=== PATIENT | female | born 1965 | race African-American/Black ===

== ENCOUNTER 2025-02-05 18:41 | Inpatient (IN) | payer MEDICAID ==
[~2025-02-05] VITALS: Ht 312.4 cm; Wt 111.1 kg
[~2025-02-05 18:41] MED LIST: AMLO5TAB88 PO; DOXA-15 PO; FERR-63 PO; FURO40TA5 MT; HYDR100T31 PO; INSU100I28 SQ; IPRA3AMP9 HHN; PEPJ2 PO; PULM50 HHN; SODI650T PO
[2025-02-05] MEDS: ALBUTEROL (0.083%) 2.5MG/3ML NEB HHN STA (18:44)
[2025-02-05] MEDS: IPRATROPIUM BROMIDE (0.02%) 0.5MG/2.5ML NEB HHN STA (18:44)
[2025-02-05] MEDS: METHYLPREDNISOLONE SOD SUCC 125MG/2ML (ACT-O-VIAL) IV STA (19:06)
[2025-02-05 19:15] VITALS: RESP 24
[2025-02-05 19:30] LABS: HEMATOCRIT. 27.4 % (36.0-48.0); HEMOGLOBIN. 7.7 g/dL (12.0-16.0); MEAN CORPUSCULAR HEMOGLOBIN 18.7 pg (28.0-32.0); MEAN CORPUSCULAR HGB CONC 27.9 g/dL (31.0-37.0); MEAN CORPUSCULAR VOLUME 66.9 fL (81.0-99.0); MEAN PLATELET VOLUME 9.5 fl (7.4-10.4); PLATELET 290 x1000/uL (130-400); RED CELL DISTRIBUTION WIDTH 22.9 % (11.6-14.6); WHITE BLOOD COUNT 8.6 x1000/uL (4.5-11.0)
[2025-02-05 19:38] LABS: CHLORIDE 108 mEq/L (98-107); POTASSIUM 5.2 mEq/L (3.5-5.1); SODIUM 145 mEq/L (136-145)
[2025-02-05 19:39] LABS: CALCIUM 8.2 mg/dL (8.7-10.4); CARBON DIOXIDE 25 mEq/L (21-32)
[2025-02-05 19:44] LABS: CREATININE 2.7 mg/dL (0.6-1.0); GLUCOSE 265 mg/dL (70-105); UREA NITROGEN BLOOD 85 mg/dL (9-23)
[2025-02-05 19:48] LABS: DIFFERENTIAL COMMENT 1
[2025-02-05 19:52] LABS: TROPONIN I HIGH SENSITIVITY 48 ng/L (3.0-34)
[2025-02-05] MEDS: ASPIRIN 325MG EC TABLET PO ONE (20:00)
[2025-02-05] MEDS ORDERED: ONDANSETRON HCL 4MG/2ML INJ IV PRN (20:30)
[2025-02-05] MEDS ORDERED: MAGNESIUM/ALUMINUM HYDROXIDE/SIMETHICONE 30ML UDC PO PRN (20:30)
[2025-02-05] MEDS ORDERED: IPRATROPIUM/ALBUTEROL 0.5-3(2.5)MG/3ML NEB HHN PRN (20:30)
[2025-02-05] MEDS ORDERED: DOCUSATE SODIUM 100MG CAPSULE PO PRN (20:30)
[2025-02-05] MEDS ORDERED: GUAIFENESIN 200MG/10ML SUGAR FREE UDC PO PRN (20:30)
[2025-02-05] MEDS ORDERED: NON FORMULARY MED XX SCH (20:45)
[2025-02-05] MEDS ORDERED: DEXTROSE 50% WATER 50ML SYRINGE IV PRN (20:45)
[2025-02-05] MEDS: BLOOD SUGAR DIAGNOSTIC STRIP TEST SCH (21:00)
[2025-02-05] MEDS ORDERED: ZOLPIDEM TARTRATE 5MG TABLET PO PRN (21:00)
[2025-02-05] MEDS ORDERED: CEFEPIME 1GM IN DEXT 5% 50ML IV SCH (21:15)
[2025-02-05 21:28] LABS: TROPONIN I HIGH SENSITIVITY 39 ng/L (3.0-34)
[2025-02-05 21:44] LABS: D-DIMER 0.43 mg/L FEU (<0.50); INR 1.1; PARTIAL THROMBOPLASTIN TIME 23.4 sec (23.4-31.0)
[2025-02-05] MEDS: FUROSEMIDE 40MG/4ML VIAL IVP ONE (21:59)
[2025-02-05 22:00] VITALS: RESP 22
[2025-02-05] MEDS: SODIUM ZIRCONIUM CYCLOSILICATE 10GM/PACKET PO NR (22:00)
[2025-02-05] MEDS: PANTOPRAZOLE SODIUM 40 MG/VIAL IV SCH (22:02)
[2025-02-05] MEDS: INSULIN LISPRO 100 UNITS/ML SUBCUT SCH (22:04)
[2025-02-05 23:11] LABS: CREATINE KINASE MB FRACTION 10.7 ng/mL (0.5-3.6)
[2025-02-05 23:36] VITALS: BP 176/88; PULSE 72; RESP 16; TEMP 35.9
[2025-02-06] VITALS (18 sets, daily range): BP systolic 104–191; BP diastolic 63–120; PULSE 74–85; RESP 0–30; TEMP 35.8–36.7; O2SAT 92–100
[2025-02-06] MEDS: FUROSEMIDE 40MG/4ML VIAL IVP NR (00:08)
[2025-02-06] MEDS: DOXYCYCLINE 100MG/100ML 100 ML IV SCH ×2 (00:08→06:24)
[2025-02-06] MEDS: IRON SUCROSE COMPLEX 100 MG/5 ML ML IV NR (00:09)
[2025-02-06] MEDS: INSULIN GLARGINE 100 UNITS/ML SUBCUT SCH (00:13)
[2025-02-06] MEDS: ENOXAPARIN 40MG/0.4ML SYR SUBCUT SCH (00:14)
[2025-02-06 00:15] LABS: ANISOCYTOSIS 2+; HYPOCHROMASIA 3+; MICROCYTOSIS 3+; PLATELET ESTIMATE NORMAL
[2025-02-06 00:16] LABS: OVALOCYTES 1+
[2025-02-06] MEDS: CEFEPIME 1GM/50ML 50 ML IV SCH (01:05)
[2025-02-06] MEDS: ACETAMINOPHEN 325MG TABLET PO PRN ×2 (01:09→05:41)
[2025-02-06] MEDS: FUROSEMIDE 40MG/4ML VIAL IVP SCH (05:16)
[2025-02-06] MEDS: CLONIDINE 0.1MG TABLET PO PRN (05:18)
[2025-02-06 06:13] LABS: CLARITY URINE CLEAR (CLEAR); COLOR URINE YELLOW (YELLOW); GLUCOSE URINE 1+ (NEGATIVE); KETONES URINE NEGATIVE (NEGATIVE); LEUKOCYTE ESTERASE URINE NEGATIVE (NEGATIVE); NITRITE URINE NEGATIVE (NEGATIVE); OCCULT BLOOD URINE 2+ (NEGATIVE); PROTEIN URINE 2+ (NEGATIVE); SPECIFIC GRAVITY URINE 1.011 (1.005-1.030); UROBILINOGEN URINE 0.2 E.U./dL (0.2-1.0)
[2025-02-06 06:14] LABS: *AMPHETAMINES SCREEN URINE NEGATIVE (NEGATIVE); *BARBITURATES SCREEN URINE NEGATIVE (NEGATIVE); *BENZODIAZEPINES SCREEN URINE NEGATIVE (NEGATIVE); *COCAINE SCREEN URINE PRESUMPTIVE POSITIVE (NEGATIVE); CANNABINOID URINE SCREEN NEGATIVE (NEGATIVE); ECSTASY MDMA SCREEN URINE NEGATIVE (NEGATIVE); METHADONE URINE SCREEN NEGATIVE (NEGATIVE); OPIATES URINE SCREEN NEGATIVE (NEGATIVE); PHENCYCLIDINE URINE SCREEN NEGATIVE (NEGATIVE)
[2025-02-06 06:42] LABS: WBC URINE 0-2 /hpf (0-2)
[2025-02-06 06:43] LABS: RBC URINE 0-2 /hpf (0-2)
[2025-02-06 06:45] LABS: BACTERIA URINE NONE SEEN; SQUAMOUS EPITHELIAL CELL URINE NONE SEEN /lpf (RARE/1+)
[2025-02-06 07:07] LABS: CALCIUM 8.5 mg/dL (8.7-10.4); CARBON DIOXIDE 24 mEq/L (21-32); CHLORIDE 106 mEq/L (98-107); POTASSIUM 4.3 mEq/L (3.5-5.1); SODIUM 143 mEq/L (136-145)
[2025-02-06 07:08] LABS: HEMATOCRIT. 28.4 % (36.0-48.0); MEAN CORPUSCULAR HEMOGLOBIN 18.8 pg (28.0-32.0); MEAN CORPUSCULAR HGB CONC 28.1 g/dL (31.0-37.0); MEAN CORPUSCULAR VOLUME 66.7 fL (81.0-99.0); MEAN PLATELET VOLUME 8.9 fl (7.4-10.4); PLATELET 260 x1000/uL (130-400); RED BLOOD CELL COUNT 4.25 mill/uL (4.2-5.4); RED CELL DISTRIBUTION WIDTH 22.7 % (11.6-14.6); WHITE BLOOD COUNT 7.3 x1000/uL (4.5-11.0)
[2025-02-06 07:10] LABS: CREATINE KINASE MB FRACTION 12.8 ng/mL (0.5-3.6); TROPONIN I HIGH SENSITIVITY 34 ng/L (3.0-34)
[2025-02-06 07:13] LABS: CREATININE 2.4 mg/dL (0.6-1.0); UREA NITROGEN BLOOD 79 mg/dL (9-23)
[2025-02-06 07:15] LABS: CREATINE KINASE 280 IU/L (34-145); PHOSPHORUS 4.5 mg/dL (2.5-4.9)
[2025-02-06 07:25] LABS: HEPATITIS B SURFACE ANTIGEN NEGATIVE (Negative)
[2025-02-06 07:46] LABS: HEPATITIS C AB REACTIVE (Pos) (Negative)
[2025-02-06 07:59] LABS: GLUCOSE 415 mg/dL (70-105)
[2025-02-06] MEDS: INSULIN LISPRO 100 UNITS/ML SUBCUT SCH ×3 (08:05→12:56)
[2025-02-06] MEDS: ASPIRIN 81MG EC TABLET PO SCH (08:14)
[2025-02-06] MEDS: AMLODIPINE 5MG TABLET PO SCH (08:15)
[2025-02-06 08:25] LABS: DIFFERENTIAL COMMENT 1
[2025-02-06] MEDS ORDERED: METHYLPREDNISOLONE SOD SUCC 40MG/ML (ACT-O-VIAL) IV SCH (09:00)
[2025-02-06] MEDS: METHYLPREDNISOLONE SOD SUCC 125MG/2ML (ACT-O-VIAL) IV SCH ×2 (09:50→18:41)
[2025-02-06] MEDS ORDERED: CLONIDINE 0.1MG TABLET PO PRN (12:15)
[2025-02-06] MEDS ORDERED: DEXTROSE 50% WATER 50ML SYRINGE IV PRN (12:15)
[2025-02-06] MEDS: BLOOD SUGAR DIAGNOSTIC STRIP TEST SCH (12:30)
[2025-02-06 13:21] LABS: BG BASE EXCESS -2.3 mmol/L (-2.0-3.0); BG CARBOXYHEMOGLOBIN 1.1 % (0.5-1.5); BG DEOXYHEMOGLOBIN 5.3 % (0.0-5.0); BG FRACTION INSPIRED OXYGEN 48; BG HCO3 ACT 23.8 mmol/L (21.0-28.0); BG METHEMOGLOBIN 0.3 % (0.5-1.5); BG OXYGEN SATURATION 94.6 % (94.0-98.0); BG OXYHEMOGLOBIN 93.3 % (94.0-98.0); BG PCO2 47.3 mmHg (32.0-45.0); BG PO2 74.8 mmHg (83.0-108.0); BG SAMPLE SITE RIGHT RADIAL; BG TOTAL HEMOGLOBIN 8.7 g/dL (12.0-16.0); BG VENT MODE NASAL CANNULA
[2025-02-06] MEDS: HYDRALAZINE 20MG/ML VIAL IV PRN (13:33)
[2025-02-06] MEDS: HYDRALAZINE HCL 100MG TABLET PO SCH (13:35)
[2025-02-06 14:22] LABS: ANISOCYTOSIS 2+; MICROCYTOSIS 2+; NUCLEATED RED BLOOD CELLS 4 /100 WBC; PLATELET ESTIMATE NORMAL
[2025-02-06 16:40] LABS: INFLUENZA TYPE A Presumptive Negative (Pres. Neg.)
[2025-02-06 16:41] LABS: INFLUENZA TYPE B Presumptive Negative (Pres. Neg.)
[2025-02-06 16:42] LABS: RESPIRATORY SYNCYTIAL VIRUS Not Detected (Not Detectd)
[2025-02-06] MEDS ORDERED: METHYLPREDNISOLONE SOD SUCC 125MG/2ML (ACT-O-VIAL) IV SCH ×2 (17:30→18:00)
[2025-02-06] MEDS: IPRATROPIUM/ALBUTEROL 0.5-3(2.5)MG/3ML NEB HHN SCH (20:03)
[2025-02-06 20:41] LABS: AMMONIA 66 uMol/L (<32)
[2025-02-06] MEDS ORDERED: NIFEDIPINE XL 60MG TAB PO SCH (21:00)
[2025-02-06] MEDS ORDERED: INFLUENZA VACCINE 05/PF 0.5 ML SYRINGE IM ONE (21:00)
[2025-02-06] MEDS ORDERED: PNEUMOCOCCAL 20-VAL CONJ-DIP CRM 0.5ML IM ONE (21:00)
[2025-02-06] MEDS: ATORVASTATIN CALCIUM 20MG TABLET PO SCH (23:48)
[2025-02-06] MEDS: CLONIDINE 0.1MG TABLET PO SCH (23:48)
[2025-02-07] VITALS (14 sets, daily range): BP systolic 138–184; BP diastolic 70–146; PULSE 78–93; RESP 12–25; TEMP 36.4–36.7; O2SAT 90–100
[2025-02-07] MEDS: AMLODIPINE 5MG TABLET PO SCH (00:23)
[2025-02-07] MEDS: INSULIN GLARGINE 100 UNITS/ML SUBCUT SCH (00:28)
[2025-02-07] MEDS: LACTULOSE 20G/30ML UDC PO NR (05:50)
[2025-02-07] MEDS: CLONIDINE HCL 0.2MG/24HR PATCH TD SCH (05:52)
[2025-02-07 06:43] LABS: CHLORIDE 108 mEq/L (98-107); POTASSIUM 4.2 mEq/L (3.5-5.1); SODIUM 145 mEq/L (136-145)
[2025-02-07 06:44] LABS: CALCIUM 8.6 mg/dL (8.7-10.4); CARBON DIOXIDE 25 mEq/L (21-32)
[2025-02-07 06:49] LABS: CREATININE 2.7 mg/dL (0.6-1.0); GLUCOSE 285 mg/dL (70-105); TRIGLYCERIDE 39 mg/dL (0-150); UREA NITROGEN BLOOD 83 mg/dL (9-23)
[2025-02-07 06:50] LABS: LDL CHOLESTEROL 71 mg/dL (5-100)
[2025-02-07 06:51] LABS: CHOLESTEROL 160 mg/dL (<200); HDL CHOLESTEROL 70 mg/dL (>65)
[2025-02-07 06:53] LABS: THYROID STIMULATING HORMONE 2.36 uIU/mL (0.55-4.78)
[2025-02-07 06:56] LABS: HEMATOCRIT 25.1 % (36.0-48.0); HEMOGLOBIN 7.3 g/dL (12.0-16.0); MEAN CORPUSCULAR HEMOGLOBIN 18.9 pg (28.0-32.0); MEAN CORPUSCULAR HGB CONC 29.1 g/dL (31.0-37.0); MEAN CORPUSCULAR VOLUME 64.9 fL (81.0-99.0); PLATELET 259 x1000/uL (130-400); RED BLOOD CELL COUNT 3.87 mill/uL (4.2-5.4); RED CELL DISTRIBUTION WIDTH 22.1 % (11.6-14.6); WHITE BLOOD COUNT 7.3 x1000/uL (4.5-11.0)
[2025-02-07 07:03] LABS: TROPONIN I HIGH SENSITIVITY 36 ng/L (3.0-34)
[2025-02-07] MEDS ORDERED: NIFEDIPINE XL 60MG TAB PO SCH (09:00)
[2025-02-07] MEDS ORDERED: AMLODIPINE 5MG TABLET PO SCH (09:00)
[2025-02-07] MEDS ORDERED: AMLODIPINE 10MG TABLET PO SCH (09:00)
[2025-02-07] MEDS: DOXAZOSIN MESYLATE 2MG TABLET PO SCH (12:33)
[2025-02-07] MEDS: METHYLPREDNISOLONE SOD SUCC 125MG/2ML (ACT-O-VIAL) IV SCH (18:05)
[2025-02-07] MEDS: ATORVASTATIN CALCIUM 40MG TABLET PO SCH (21:20)
[2025-02-08] VITALS (19 sets, daily range): BP systolic 127–170; BP diastolic 60–104; PULSE 77–88; RESP 15–26; TEMP 36.1–36.6; O2SAT 80–100
[2025-02-08 06:24] LABS: POTASSIUM 4.3 mEq/L (3.5-5.1)
[2025-02-08 06:30] LABS: CREATININE 2.7 mg/dL (0.6-1.0)
[2025-02-08 07:03] LABS: HEMATOCRIT 26.4 % (36.0-48.0); HEMOGLOBIN 7.5 g/dL (12.0-16.0); MEAN CORPUSCULAR HEMOGLOBIN 18.9 pg (28.0-32.0); MEAN CORPUSCULAR HGB CONC 28.4 g/dL (31.0-37.0); MEAN CORPUSCULAR VOLUME 66.6 fL (81.0-99.0); PLATELET 246 x1000/uL (130-400); RED BLOOD CELL COUNT 3.96 mill/uL (4.2-5.4); WHITE BLOOD COUNT 7.7 x1000/uL (4.5-11.0)
[2025-02-08 12:14] LABS: CALCIUM 8.9 mg/dL (8.7-10.4)
[2025-02-08] MEDS ORDERED: CLONIDINE 0.1MG TABLET PO SCH (14:00)
[2025-02-08] MEDS: FUROSEMIDE 40MG/4ML VIAL IVP NR (16:24)
[2025-02-08] MEDS: IPRATROPIUM/ALBUTEROL 0.5-3(2.5)MG/3ML NEB HHN NR (16:46)
[2025-02-08] MEDS: METHYLPREDNISOLONE SOD SUCC 125MG/2ML (ACT-O-VIAL) IV SCH (17:45)
[2025-02-08] MEDS: CLONIDINE 0.2MG TABLET PO SCH (22:05)
[2025-02-09] VITALS (17 sets, daily range): BP systolic 122–163; BP diastolic 47–118; PULSE 69–84; RESP 17–25; TEMP 36.4–36.9; O2SAT 93–100
[2025-02-09 06:20] LABS: HEMATOCRIT 24.9 % (36.0-48.0); HEMOGLOBIN 7.2 g/dL (12.0-16.0); MEAN CORPUSCULAR HEMOGLOBIN 18.7 pg (28.0-32.0); MEAN CORPUSCULAR HGB CONC 28.7 g/dL (31.0-37.0); RED BLOOD CELL COUNT 3.83 mill/uL (4.2-5.4); RED CELL DISTRIBUTION WIDTH 22.9 % (11.6-14.6); WHITE BLOOD COUNT 6.9 x1000/uL (4.5-11.0)
[2025-02-09 06:21] LABS: POTASSIUM 4.9 mEq/L (3.5-5.1)
[2025-02-09 06:27] LABS: CREATININE 2.6 mg/dL (0.6-1.0)
[2025-02-09] MEDS: DOXAZOSIN MESYLATE 2MG TABLET PO SCH (10:30)
[2025-02-09] MEDS ORDERED: DOXA-14 PO (10:52)
[2025-02-09] MEDS ORDERED: P20 MT (10:52)
[2025-02-09] MEDS ORDERED: FURO-151 MT (10:52)
[2025-02-09] MEDS ORDERED: MOME13HF11 INH (10:52)
[2025-02-09] MEDS ORDERED: LIP40 PO (10:52)
[2025-02-09] MEDS ORDERED: PROT40 MT (10:52)
[2025-02-09] MEDS ORDERED: AMLO5TAB88 PO (10:52)
[2025-02-09] MEDS ORDERED: ASPI-1406 PO (10:52)
[2025-02-09] MEDS ORDERED: CLON0.2T PO (10:52)
[2025-02-09 13:43] LABS: PLATELET 219 x1000/uL (130-400)
[2025-02-09] MEDS: INSULIN LISPRO 100 UNITS/ML SUBCUT NR (14:43)
[2025-02-09] MEDS ORDERED: HYDR100T11 MT (17:02)
== END 2025-02-10 01:00 | disposition home or self-care (01) | DRG 133 ==
LOC: ER 18:41 → 5EST 22:58
PROVIDERS: ADMIT Internal Medicine; ATTEND Internal Medicine
PROC: 5A09357 Assistance with Respiratory Ventilation, Less than 24 Consecutive Hours, Continuous Positive Airway Pressure (ICD-10-PCS; principal; 2025-02-05)
PROC: 5A09357 Assistance with Respiratory Ventilation, Less than 24 Consecutive Hours, Continuous Positive Airway Pressure (ICD-10-PCS; 2025-02-07)
PROC: 5A09357 Assistance with Respiratory Ventilation, Less than 24 Consecutive Hours, Continuous Positive Airway Pressure (ICD-10-PCS; 2025-02-08)
PROC: 5A09357 Assistance with Respiratory Ventilation, Less than 24 Consecutive Hours, Continuous Positive Airway Pressure (ICD-10-PCS; 2025-02-09)
DX: J96.01 Acute respiratory failure with hypoxia (principal); I21.A1 Myocardial infarction type 2; I50.33 Acute on chronic diastolic (congestive) heart failure; N17.9 Acute kidney failure, unspecified; J44.1 Chronic obstructive pulmonary disease with (acute) exacerbation; E11.22 Type 2 diabetes mellitus with diabetic chronic kidney disease; D50.9 Iron deficiency anemia, unspecified; E66.9 Obesity, unspecified; I13.0 Hypertensive heart and chronic kidney disease with heart failure and stage 1 through stage 4 chronic kidney disease, or unspecified chronic kidney disease; E78.00 Pure hypercholesterolemia, unspecified; N18.4 Chronic kidney disease, stage 4 (severe); E88.810 Metabolic syndrome; E87.5 Hyperkalemia; F14.10 Cocaine abuse, uncomplicated; Z79.899 Other long term (current) drug therapy; Z68.31 Body mass index [BMI] 31.0-31.9, adult; Z86.74 Personal history of sudden cardiac arrest; Z99.81 Dependence on supplemental oxygen; Z79.4 Long term (current) use of insulin; Z79.51 Long term (current) use of inhaled steroids; Z79.82 Long term (current) use of aspirin
CPT/HCPCS: 36415; 36600; 71045; 80048; 80061; 80305; 81003; 82140; 82375; 82550; 82553; 82805; 82962; 83036; 83605; 83735; 83880; 84100; 84145; 84443; 84484; 85025; 85027; 85379; 86705; 87340; 87420; 87804; 90686; 90732; 93005; 93306; 93970; 94070; 94640; 94660; 94664; 94760; 98960; 99291; J0360; J0692; J1650; J1815; J1940; J2470; J2919; J3490